=== PATIENT | female | born 1975 | race Caucasian/White ===

== ENCOUNTER → 2019-07-22 16:45 | Outpatient (CLI) | payer BC, SELFPAY ==
--- NOTE | 2019-07-22 16:48 | MM_ITS ---
PROCEDURE: MM DIG SCREENING MAMM BI W/CAD CLINICAL INDICATION: SCREENING There is no personal or family history of breast cancer. COMPARISON: None, this is baseline examination TECHNIQUE: Standard CC and MLO images and 3D Tomosynthesis was obtained. R2 CAD reviewed. FINDINGS: Prominent diffuse heterogenic fibroglandular densities are seen in both breasts somewhat lessening the sensitivity of mammography. Travis images are most helpful in this type of breast parenchyma. There is a mole marker left breast. There is no suspicious lesion and no suspicious microcalcifications. IMPRESSION: Dense and heterogenic parenchymal pattern with no suspicious lesions seen BI-RAD Category: 1 Negative FOLLOW-UP: 1YR 1 Year Follow-up (A letter has been sent to the patient regarding results of the study.) Dictated by: Dr. Jett Duncan MD 07/24/2019 10:[address] Jett Duncan MD in [place] 07/24/2019 10:34
== END ==
PROVIDERS: PCP Family Medicine; Visit Provider Family Medicine
DX: Z12.31 Encounter for screening mammogram for malignant neoplasm of breast (principal)
CPT/HCPCS: 77063; 77067

== ENCOUNTER → 2021-07-01 17:30 | Outpatient (CLI) | payer OTHER, SELFPAY ==
[2021-07-01 18:53] LABS: Basophils # 0.1 K/mm3 (0-0.2); Basophils % 1.2 % (0.1-2.0); Eosinophils # 0.3 K/mm3 (0.0-0.4); Hematocrit 46.7 % (37.0-47.0); Lymphocytes # 2.5 K/mm3 (0.7-4.5); Lymphocytes % 40.4 % (10-50); Mean Corpuscular HGB Conc 32.1 g/dL (31.8-35.4); Mean Corpuscular Volume 96.7 fl (81-99); Mean Platelet Volume 9.7 fl (7.4-10.4); Monocytes # 0.3 K/mm3 (0.1-1.0); Monocytes % 5.7 % (1.7-9.3); Neutrophils # 2.9 K/mm3 (1.8-7.8); Neutrophils % 47.8 % (37.0-80.0); Platelet Count 239 K/mm3 (142-424); Red Blood Count 4.83 M/mm3 (4.20-5.40); Red Cell Distribution Width 12.4 % (11.5-17.5); White Blood Count 6.1 K/mm3 (4.8-10.8)
[2021-07-01 18:56] LABS: Alanine Aminotransferase 15 U/L (12-78); Albumin/Globulin Ratio 1.9 (1.1-1.8); Alkaline Phosphatase 46 U/L (38-126); Anion Gap 11.3 mEq/L (5-15); Aspartate Amino Transferase 24 U/L (14-36); Bilirubin,Total 0.5 mg/dl (0.2-1.3); Blood Urea Nitrogen 15 mg/dl (7-17); Calcium 9.6 mg/dl (8.4-10.2); Carbon Dioxide 30 mmol/L (22.0-30.0); Chloride 102 mmol/L (98-107); Chol/HDL Ratio 4.2 (1-3.5); Cholesterol 208 mg/dl (140-200); Estimated Glomerular Filt Rate 68 ml/min (>60); GFR (African American) 83 ML/MIN (>60); Globulin 2.6 g/dL (1.3-3.2); Glucose 94 mg/dl (74-100); HDL Cholesterol 50 mg/dl (40-60); Potassium 4.3 mmoL/L (3.5-5.1); Sodium 139 mmol/L (136-145); Total Protein,Serum 7.6 g/dl (6.3-8.2); Triglycerides 71 mg/dl (30-150); VLDL Cholesterol 14 mg/dL (0-40)
[2021-07-01 19:07] LABS: Direct LDL Cholesterol 135.73 mg/dL (100-129)
[2021-07-01 19:13] LABS: T4 (Thyroxine) 9.3 ug/dl (5.53-11.0)
[2021-07-01 19:14] LABS: 25-OH Vitamin D, Total 35.6 ng/mL (30-100)
[2021-07-01 19:27] LABS: Thyroid Stimulating Hormone 1.03 uIU/mL (0.465-4.68)
== END ==
PROVIDERS: Visit Provider Nurse Practitioner Family
DX: Z00.00 Encounter for general adult medical examination without abnormal findings (principal); Z76.89 Persons encountering health services in other specified circumstances; M25.511 Pain in right shoulder; Z78.9 Other specified health status
CPT/HCPCS: 80053; 80061; 82306; 84436; 84443; 85025

== ENCOUNTER → 2021-07-11 14:45 | Outpatient (CLI) | payer OTHER, SELFPAY ==
--- NOTE | 2021-07-11 14:45 | MR_ITS ---
FINAL REPORT CLINICAL HISTORY: shoulder pain. shoulder pain unable to lay on it. pain from neck into shoulder. no recent injury or trauma. FINDINGS: Multiplanar MR imaging of the shoulder was performed without contrast. The tendons of the rotator cuff are intact without evidence of rotator cuff tear. There is mild a.c. joint arthropathy with edema in the distal clavicle and acromion. No abnormal fluid is seen in the subacromial/subdeltoid bursa. The glenoid labrum is intact. The long head of the biceps tendon is intact. There is no evidence of fracture, bone bruise or marrow edema. A 10 mm low signal focus is seen lateral to the humeral head likely representing soft tissue calcification which could be related to tendinitis or loose body in the bursa. No significant glenohumeral joint effusion is identified. The musculature is intact. There is no evidence of soft tissue mass. IMPRESSION: Mild a.c. joint arthrosis with edema in the distal clavicle and acromion. 10 mm possible loose body or soft tissue calcification related to calcific tendinitis. Reviewed, Interpreted and Dictated by Jeremy Schwartz III, MD Transcribed by Barbara Fragoso Authenticated by Jeremy Schwartz III, MD on 07/11/2021 04:56:38 PM [facility]
== END ==
PROVIDERS: PCP Nurse Practitioner Family; Visit Provider Nurse Practitioner Family
DX: M25.511 Pain in right shoulder (principal)
CPT/HCPCS: 73221

== ENCOUNTER 2021-07-12 10:55 | Emergency (ER) | payer OTHER, SELFPAY ==
[2021-07-12 12:30] VITALS: BP 131/84; PULSE 76; RESP 18; TEMP 37.1; O2SAT 98; BMI 27.1
--- NOTE | 2021-07-12 13:11 | HMH.EDUTC ---
[facility] [place] Disposition Clinical Impression: Tonsillitis Disposition: Home, Self-Care Condition on Discharge: Good Instructions: Sore Throat Additional Instructions: *Monitor Temp, Over the counter Motrin or Tylenol as directed/as needed Tylenol every 4 hours and Motrin every 6 hours (as long as your family doctor has told you that you can take it) for fever or pain. and straight to ER if unable to lower temp less than 101.0 after medication given *Warm salt water gargles may help to soothe the throat *Throat Lozenges *Warm fluids like tea with honey may help to soothe the throat *Sleep elevated *Humidifier/Vaporizer *Flonase 2 sprays in each nostril daily but be aware that it may take 2-3 days before you notice improvement *Bromfed may cause drowsiness. Know how it effects you (your child) before driving, caring for small child, or sending your child to school. Not other antihistamines/allergy medications while taking bromfed Your throat swab was sent for culture. Those results are typically sent to your primary care. Be sure to follow up in 2-3 days with your family doctor/primary care physician if no improvement so they can review those result and treat if necessary. If you don?t have a primary care doctor, I recommend you get one but in the mean time, you will have to return to a walk in clinic Follow up IMMEDIATELY for new or worsening symptoms or no Noticeable improvement over the next 48-72 hours. 911 for difficulty breathing or swallowing You were tested for today for COVID19 your test result should be back in the next 24-72 hours, you may check your results on the [facility] my Health portal if you have trouble logging on you may call support to help you If you are positive someone from the hospital will be calling you Make sure to take your Vitamins Vit. C Vit D and Zinc if you can take them Prescriptions: Amoxicillin [Amoxicillin 875MG Tab] 875 mg PO Q12H #20 tab Transmission Status: Pending to [facility] Referrals: Valeriy Grimm MD [Primary Care Provider] - As needed Forms: Work/School Release Time of Disposition: 13:39 Medical Decision Making - Jean-Pierre Inquiry Pt receiving controlled substance: No Jean-Pierre was queried for this patient: No Vital Signs: 07/12/21 12:30 Temperature 98.8 F Temperature Source Oral Pulse Rate [Right Brachial] 76 Respiratory Rate 18 Blood Pressure [Right Arm] 131/84 Blood Pressure Mean [Right Arm] 99 Blood Pressure Source [Right Arm] Automatic Cuff Blood Pressure Position [Right Arm] Sitting 02 Sat by Pulse Oximetry 98 Oxygen Delivery Method Room Air - Lab Data Lab Results 07/12/21 12:36: Group A Strep Rapid Negative Orders (Tests/Meds): ORDERS Category Date Time Status Covid-19 Nasal PCR ([facility]) Routine Lab 07/12/21 12:44 Received Strep Screen Confirmation Stat Micro 07/12/21 12:36 Received [facility] [place] HPI - General Stated complaint: sore throat Time Seen by Provider: 07/12/21 13:11 Mode of Arrival: Ambulatory Source of Information: Patient Limitations: No Limitations Description of Symptoms (Recalled from Triage Doc. by RN): PATIENT C/O SORE THROAT SINCE SUNDAY HEENT Symptoms (Recalled from RN notes): Yes Resp Symptoms (Recalled from RN notes): No Skin Symptoms (Recalled from RN notes): No MS Symptoms (Recalled from RN notes): No Functional Status (Recalled from RN notes): WNL - History of Present Illness Provider Complaint: Patient states that she started having sore scratchy throat on Sunday and it has continued to get worse so today when it was still hurting she came in to get it checked out - Related Data Home Medications Medication Instructions Recorded Confirmed Medroxyprogesterone Acetate 150 mg IM [id number] 07/12/21 07/12/21 Previous Rx's Medication Instructions Recorded Amoxicillin [Amoxicillin 875MG 875 mg PO Q12H #20 tab 07/12/21 Tab] Allergies Allergy/AdvReac Type Severity Reaction Status Date / Time No Known All
[2021-07-12 13:34] LABS: Strep Scrn Group A (Rapid) Negative (Negative)
[2021-07-12 13:55] VITALS: BP 131/84; PULSE 76; RESP 18; TEMP 37.1; O2SAT 98
== END 2021-07-12 13:58 | disposition home or self-care (01) ==
PROVIDERS: Emergency Provider Nurse Practitioner; PCP Emergency Medicine
DX: J03.90 Acute tonsillitis, unspecified (principal)
CPT/HCPCS: 87430; 99203; C9803; G0463; U0003; U0005

== ENCOUNTER → 2021-08-05 08:38 | Outpatient (CLI) | payer OTHER, SELFPAY ==
--- NOTE | 2021-08-05 08:44 | XR_ITS ---
FINAL REPORT CLINICAL HISTORY: hurt last summer [place] FINDINGS: 3 views of the right shoulder were obtained. There is no acute fracture or dislocation. The joint spaces are intact. There are no soft tissue abnormalities. IMPRESSION: No acute process. Reviewed, Interpreted and Dictated by Kyle Strickland MD Transcribed by João Tai Authenticated by Kyle Strickland MD on 08/05/2021 10:36:29 AM [facility]
== END ==
PROVIDERS: PCP Emergency Medicine; Visit Provider Orthopaedic Surgery
DX: M25.511 Pain in right shoulder (principal)
CPT/HCPCS: 73030

== ENCOUNTER → 2022-06-19 10:26 | Outpatient (CLI) | payer OTHER, SELFPAY ==
[2022-06-20 09:53] LABS: Basophils # 0.1 K/mm3 (0-0.2); Eosinophils # 0.2 K/mm3 (0.0-0.4); Eosinophils % 2.6 % (0.1-12.0); Hematocrit 44.3 % (37.0-47.0); Hemoglobin 13.8 g/dL (12.2-16.2); Lymphocytes % 35.3 % (10-50); Mean Corpuscular Volume 99.9 fl (81-99); Mean Platelet Volume 10.8 fl (7.4-10.4); Monocytes # 0.4 K/mm3 (0.1-1.0); Monocytes % 6.4 % (1.7-9.3); Neutrophils # 3.1 K/mm3 (1.8-7.8); Neutrophils % 54.8 % (37.0-80.0); Platelet Count 253 K/mm3 (142-424); Red Blood Count 4.44 M/mm3 (4.20-5.40); Red Cell Distribution Width 12.5 % (11.5-17.5); White Blood Count 5.7 K/mm3 (4.8-10.8)
[2022-06-20 10:18] LABS: Alanine Aminotransferase 15 U/L (12-78); Albumin Level 4.5 g/dl (3.5-5.0); Albumin/Globulin Ratio 1.8 (1.1-1.8); Alkaline Phosphatase 42 U/L (38-126); Anion Gap 9.5 mEq/L (5-15); Aspartate Amino Transferase 24 U/L (14-36); Bilirubin,Total 0.5 mg/dl (0.2-1.3); Blood Urea Nitrogen 18 mg/dl (7-17); Calcium 9.1 mg/dl (8.4-10.2); Carbon Dioxide 28 mmol/L (22.0-30.0); Chloride 105 mmol/L (98-107); Chol/HDL Ratio 3.3 (1-3.5); Cholesterol 166 mg/dl (140-200); Estimated Glomerular Filt Rate 68 ml/min (>60); GFR (African American) 82 ML/MIN (>60); Globulin 2.5 g/dL (1.3-3.2); Glucose 76 mg/dl (74-100); HDL Cholesterol 50 mg/dl (40-60); Potassium 4.5 mmoL/L (3.5-5.1); Sodium 138 mmol/L (136-145); Triglycerides 66 mg/dl (30-150); VLDL Cholesterol 13 mg/dL (0-40)
[2022-06-20 10:29] LABS: Direct LDL Cholesterol 100.07 mg/dL (100-129)
[2022-06-20 10:36] LABS: 25-OH Vitamin D, Total 31.9 ng/mL (30-100)
[2022-06-20 10:49] LABS: Thyroid Stimulating Hormone 0.81 uIU/mL (0.465-4.68)
[2022-06-20 11:08] LABS: Vitamin B12 444 pg/mL (239-931)
== END ==
PROVIDERS: PCP Physician Assistant; Visit Provider Physician Assistant
DX: Z00.00 Encounter for general adult medical examination without abnormal findings (principal)
CPT/HCPCS: 80053; 80061; 82306; 82607; 84443; 85025

== ENCOUNTER → 2022-07-21 16:13 | Outpatient (CLI) | payer OTHER, SELFPAY ==
--- NOTE | 2022-07-21 16:20 | MM_ITS ---
PROCEDURE INFORMATION: Exam: MG Bilateral Screening 3D Mammography Exam date and time: 07/21/2022 4:14 PM Age: 47 years old Clinical indication: Screening mammogram TECHNIQUE: Imaging protocol: Bilateral Screening tomosynthesis and 2D mammography including computer-aided detection (CAD) when performed. COMPARISON: MG MM DIG SCREENING MAMM BI W/CAD 07/22/2019 4:54 PM FINDINGS: MAMMOGRAPHY: Breast composition: The breast is heterogeneously dense, which may obscure small masses. Mass: None. Architectural distortion: No new or suspicious architectural distortion. Calcifications: No new or suspicious calcifications are present Asymmetric density: No new or suspicious asymmetric density is present Skin thickening: None. Axillary adenopathy: None. IMPRESSION: No mammographic evidence of malignancy. Recommend annual screening mammography unless otherwise clinically indicated. ASSESSMENT: BI-RADS category 1: Negative
== END ==
PROVIDERS: PCP Physician Assistant; Visit Provider Physician Assistant
DX: Z12.31 Encounter for screening mammogram for malignant neoplasm of breast (principal)
CPT/HCPCS: 77063; 77067

== ENCOUNTER 2023-08-07 18:38 | Outpatient (CLI) | payer OTHER, SELFPAY ==
[2023-08-07 18:30] LABS: Basophils % 0.3 % (0.1-2.0); Eosinophils # 0.2 K/mm3 (0.0-0.4); Eosinophils % 2.7 % (0.1-12.0); Hematocrit 42.7 % (37.0-47.0); Hemoglobin 13.9 g/dL (12.2-16.2); Lymphocytes # 2.8 K/mm3 (0.7-4.5); Lymphocytes % 41.9 % (10-50); Mean Corpuscular HGB Conc 32.6 g/dL (31.8-35.4); Mean Corpuscular Hemoglobin 31.7 pg (27.0-31.2); Mean Corpuscular Volume 97.4 fl (81-99); Mean Platelet Volume 9.4 fl (7.4-10.4); Monocytes # 0.4 K/mm3 (0.1-1.0); Neutrophils # 3.2 K/mm3 (1.8-7.8); Neutrophils % 49.1 % (37.0-80.0); Platelet Count 230 K/mm3 (142-424); Red Blood Count 4.39 M/mm3 (4.20-5.40); Red Cell Distribution Width 12.7 % (11.5-17.5); White Blood Count 6.6 K/mm3 (4.8-10.8)
[2023-08-07 19:25] LABS: Alanine Aminotransferase 18 U/L (12-78); Albumin Level 4.4 g/dl (3.5-5.0); Albumin/Globulin Ratio 1.8 (1.1-1.8); Alkaline Phosphatase 60 U/L (38-126); Anion Gap 15.4 mEq/L (5-15); Aspartate Amino Transferase 24 U/L (14-36); Bilirubin,Total 0.5 mg/dl (0.2-1.3); Blood Urea Nitrogen 18 mg/dl (7-17); Calcium 9.3 mg/dl (8.4-10.2); Carbon Dioxide 25 mmol/L (22.0-30.0); Chloride 102 mmol/L (98-107); Chol/HDL Ratio 4.6 (1-3.5); Cholesterol 195 mg/dl (140-200); Estimated Glomerular Filt Rate 67 ml/min (>60); GFR (African American) 82 ML/MIN (>60); Globulin 2.5 g/dL (1.3-3.2); Glucose 83 mg/dl (74-100); HDL Cholesterol 42 mg/dl (40-60); Potassium 4.4 mmoL/L (3.5-5.1); Sodium 138 mmol/L (136-145); Total Protein,Serum 6.9 g/dl (6.3-8.2); Triglycerides 82 mg/dl (30-150); VLDL Cholesterol 16 mg/dL (0-40)
[2023-08-07 19:29] LABS: 25-OH Vitamin D, Total 70.2 ng/mL (30-100)
[2023-08-07 19:36] LABS: Direct LDL Cholesterol 108.42 mg/dL (100-129)
[2023-08-07 19:56] LABS: Thyroid Stimulating Hormone 0.87 uIU/mL (0.465-4.68)
[2023-08-07 23:17] LABS: Hemoglobin A1C 5.1 % (4.0-6.0)
== END 2023-08-07 23:59 ==
LOC: LAB.DROPOF 18:38
PROVIDERS: PCP Physician Assistant; Visit Provider Physician Assistant
DX: Z00.00 Encounter for general adult medical examination without abnormal findings (principal); Z79.899 Other long term (current) drug therapy; R79.89 Other specified abnormal findings of blood chemistry
CPT/HCPCS: 80053; 80061; 82306; 83036; 84443; 85025

== ENCOUNTER 2023-09-13 20:38 | Outpatient (CLI) | payer OTHER, SELFPAY | END 2023-09-13 23:59 | LOC: LAB.DROPOF 20:38 | PROVIDERS: PCP Nurse Practitioner Family; Visit Provider Nurse Practitioner Family | DX: N39.0 Urinary tract infection, site not specified (principal) | CPT/HCPCS: 87086 ==

== ENCOUNTER 2023-09-17 12:54 | Outpatient (CLI) | payer OTHER, SELFPAY ==
--- NOTE | 2023-09-17 12:54 | MM_ITS ---
PROCEDURE INFORMATION: Exam: MG Bilateral Screening 3D Mammography Exam date and time: 09/17/2023 12:50 PM Age: 48 years old Clinical indication: Screening examination TECHNIQUE: Imaging protocol: Bilateral Screening tomosynthesis and 2D mammography including computer-aided detection (CAD) when performed. COMPARISON: 1. MG MM DIG SCREENING MAMM BI W/CAD 07/21/2022 4:14 PM 2. MG MM DIG SCREENING MAMM BI W/CAD 07/22/2019 4:54 PM FINDINGS: MAMMOGRAPHY: Breast composition: The breasts are heterogeneously dense, which may obscure small masses. Mass: Questionable 0.7 cm mass in the posterior right upper outer quadrant Architectural distortion: None. Calcifications: No suspicious calcifications. Asymmetric density: None. Skin thickening: None. Axillary adenopathy: None. IMPRESSION: Patient to be recalled for spot compression views of the right breast in the CC and MLO projections, a full 90 degree lateral view, and possible right breast ultrasound for further evaluation of a right breast mass. ASSESSMENT: BI-RADS Category 0: Incomplete- Need Additional Imaging Evaluation and/or Prior Mammograms for Comparison.
== END 2023-09-17 23:59 ==
LOC: RAD 12:54
PROVIDERS: PCP Physician Assistant; Visit Provider Nurse Practitioner Family
DX: Z12.31 Encounter for screening mammogram for malignant neoplasm of breast (principal)
CPT/HCPCS: 77063; 77067

== ENCOUNTER 2023-10-01 14:31 | Outpatient (CLI) | payer OTHER, SELFPAY ==
--- NOTE | 2023-10-01 14:32 | US_ITS ---
PROCEDURE INFORMATION: Exam: US Right Breast, Complete Exam date and time: 10/01/2023 3:31 PM Age: 48 years old Clinical indication: Callback for further assessment of a possible 0.7 cm right upper outer posterior mass identified on 09/17/2023 screening mammogram. 10/01/2023 diagnostic mammogram was submitted which revealed generalized nodular glandular tissue in the upper outer right breast with recommendation for ultrasound TECHNIQUE: Imaging protocol: Complete ultrasound of all four quadrants of the right breast and the retroareolar regions, including ultrasound of the axilla when performed. COMPARISON: MG MM DIG MAMM DX UNILAT RT CAD 10/01/2023 2:38 PM FINDINGS: ULTRASOUND: Breast ultrasound findings: In the region of mammographic interest, upper outer right breast, only normal glandular structures are present. There is a complicated incidentally discovered 1.8 x 0.6 x 2.1 cm mass in the 8 o'clock right breast 6 cm from the nipple. This has features highly suggestive of a cluster of benign microcysts within echogenic glandular tissue Otherwise, only normal glandular structures are present in the right breast No suspicious solid or cystic mass is present. No architectural distortion or shadowing is present. No axillary adenopathy is present. IMPRESSION: Probably benign. Six-month follow-up targeted 8 o'clock right breast ultrasound is recommended to assure stability of what appears to reflect a incidentally discovered cluster of microcysts spanning about 2.1 cm In the region of mammographic interest initially described, only normal glandular structures are present. ASSESSMENT: BI-RADS category 3: Probably benign
--- NOTE | 2023-10-01 14:50 | MM_ITS ---
PROCEDURE INFORMATION: Exam: MG Right Diagnostic Breast Tomosynthesis Exam date and time: 10/01/2023 2:38 PM Age: 48 years old Clinical indication: Callback for additional assessment possible 0.7 cm right upper outer posterior mass identified on 09/17/2023 screening mammogram TECHNIQUE: Imaging protocol: Right Diagnostic tomosynthesis and 2D mammography including computer-aided detection (CAD) when performed. Unilateral or bilateral exam. COMPARISON: 1. MG MM DIG SCREENING MAMM BI W/CAD 09/17/2023 12:50 PM 2. MG MM DIG SCREENING MAMM BI W/CAD 07/21/2022 4:14 PM 3. MG MM DIG SCREENING MAMM BI W/CAD 07/22/2019 4:54 PM FINDINGS: The MAMMOGRAPHY: Breast composition: The breast is heterogeneously dense, which may obscure small masses. Breast mammogram findings: Cc/MLO spot and full lateral views There is it generalized nodular glandular pattern in the upper outer posterior right breast without discrete dominant mass, architectural distortion or suspicious calcifications. I suspect the finding from screening mammography may reflect normal glandular structures however given this glandular pattern sonographic assessment is required to exclude underlying mass IMPRESSION: Ultrasound assessment of the upper outer posterior right breast is recommended to exclude the possibility of an obscured subcentimeter mass within dense nodular glandular structures ASSESSMENT: BI-RADS 0, incomplete, needs additional imaging evaluation
== END 2023-10-01 23:59 | disposition home or self-care (01) ==
LOC: RAD 14:32
PROVIDERS: PCP Physician Assistant; Visit Provider Physician Assistant
DX: R92.8 Other abnormal and inconclusive findings on diagnostic imaging of breast (principal)
CPT/HCPCS: 76641; 77061; 77065; G0279

== ENCOUNTER 2023-12-14 13:28 | Outpatient (RCR) | payer OTHER, SELFPAY | END 2023-12-14 15:00 | disposition home or self-care (01) | LOC: OT 13:28 | PROVIDERS: Visit Provider Physician Assistant | DX: G56.03 Carpal tunnel syndrome, bilateral upper limbs (principal) | CPT/HCPCS: 97763 ==

== ENCOUNTER 2024-06-25 09:37 | Outpatient (CLI) | payer OTHER, SELFPAY | END 2024-06-25 23:59 | disposition home or self-care (01) | LOC: LAB.DROPOF 06-26 09:38 | PROVIDERS: PCP Nurse Practitioner Family; Visit Provider Nurse Practitioner Family | DX: N39.0 Urinary tract infection, site not specified (principal) | CPT/HCPCS: 87086 ==

== ENCOUNTER 2024-06-27 09:04 | Outpatient (CLI) | payer OTHER, SELFPAY ==
[2024-06-27 16:53] LABS: Microscopic, Urine URINE MICROSCOPIC (MICROSCOPIC)
[2024-06-27 18:43] LABS: Appearance,Urine CLEAR (Clear); Bilirubin,Urine Negative (Negative); Blood, Urine Negative (Negative); Color,Urine YELLOW (Yellow); Glucose,Urine (UA) Negative (Negative); Ketones,Urine Negative (Negative); Leukocyte Esterase,Urine Negative (Negative); Nitrate,Urine Negative (Negative); Protein,Urine Negative (Negative); Specific Gravity, Urine 1.015 (1.005-1.030); Urobilinogen,Urine 0.2 EU/dl (0.2)
[2024-06-27 19:05] LABS: Squamous Epithelial Cell,Urine Occasional #/hpf (0-5); WBC,Urine Occasional #/hpf (0-3)
== END 2024-06-27 23:59 | disposition home or self-care (01) ==
LOC: LAB.DROPOF 06-30 09:04
PROVIDERS: PCP Nurse Practitioner Family; Visit Provider Nurse Practitioner Family
DX: R82.90 Unspecified abnormal findings in urine (principal)
CPT/HCPCS: 81001; 87086

== ENCOUNTER 2024-07-09 13:00 | Outpatient (CLI) | payer OTHER, SELFPAY ==
--- NOTE | 2024-07-09 13:05 | MM_ITS ---
PROCEDURE INFORMATION: Exam: US Right Breast, Complete MG Right Diagnostic Breast Tomosynthesis Exam date and time: 07/09/2024 1:08 PM Age: 49 years old Clinical indication: Follow-up of probably benign findings in the right breast TECHNIQUE: Imaging protocol: Complete ultrasound of all four quadrants of the right breast and the retroareolar regions, including ultrasound of the axilla when performed. Right Diagnostic tomosynthesis and 2D mammography including computer-aided detection (CAD) when performed. Unilateral or bilateral exam. COMPARISON: 1. MG MAMMO DIAGNOSTIC DIGITAL TOMOSYNTHESIS BILATERAL W CAD 11/12/2023 8:23 AM 2. MG MM DIG MAMM DX UNILAT RT CAD 10/01/2023 2:38 PM FINDINGS: MAMMOGRAPHY: Breast composition: The breast is heterogeneously dense, which may obscure small masses. Breast mammogram findings: Stable dense glandular tissue is noted in the upper-outer quadrant of the right breast, with no discrete mass, distortion, or suspicious calcifications. ULTRASOUND: Breast ultrasound findings: Ultrasound the right breast at the 8 o'clock axis, 6 cm from the nipple demonstrates clustered microcysts measuring 2.6 x 0.4 x 1.8 cm. This is not significantly changed since 10/01/2023. Clustered microcysts are also noted in the right breast 9 o'clock retroareolar region measuring 0.7 x 0 4 x 0.9 cm. No new or suspicious mass. No shadowing or distortion. No axillary adenopathy. IMPRESSION: No mammographic abnormality is seen. There are clustered microcysts in the right breast 8 and 9 o'clock axis on ultrasound, which are mostly unchanged since 10/01/2023. Six-month follow-up diagnostic mammogram and ultrasound recommended for continued close surveillance. ASSESSMENT: BI-RADS Category 3: Probably benign.
== END 2024-07-09 23:59 | disposition home or self-care (01) ==
LOC: RAD 13:01
PROVIDERS: PCP Nurse Practitioner Family; Visit Provider Nurse Practitioner Family
DX: R92.8 Other abnormal and inconclusive findings on diagnostic imaging of breast (principal)
CPT/HCPCS: 76641; 77061; 77065; G0279